=== PATIENT | female | born 1970 | race Caucasian/White ===

== ENCOUNTER 2017-12-27 01:27 | Emergency (ER) | payer OTHER ==
[2017-12-27] MEDS ORDERED: KEFLEX500 M1 PO (04:08)
[2017-12-27] MEDS ORDERED: NORCO 5-325 TA1 EACH PO (04:08)
== END 2017-12-27 05:01 | disposition home or self-care (01) ==
LOC: M.ERS 01:27
DX: S41.151A Open bite of right upper arm, initial encounter (principal); S41.152A Open bite of left upper arm, initial encounter; Z88.8 Allergy status to other drugs, medicaments and biological substances; W54.0XXA Bitten by dog, initial encounter; Y93.89 Activity, other specified; Y92.89 Other specified places as the place of occurrence of the external cause; Y99.8 Other external cause status